=== PATIENT | female | born 1955 ===

== ENCOUNTER → 2018-09-12 11:36 | Outpatient (CLI) | payer OTHER, SELFPAY ==
--- NOTE | 2018-09-12 | DI.MG.S_ITS ---
BILATERAL DIGITAL SCREENING MAMMOGRAM 3D/2D WITH CAD: 09/12/2018 CLINICAL: Routine screening. Family history of breast cancer. Comparison is made to exams dated: 08/17/2017 mammogram, 08/01/2015 mammogram - [facility], and 07/12/2014 mammogram - [facility]. The tissue of both breasts is extremely dense, which lowers the sensitivity of mammography. Current study was also evaluated with a Computer Aided Detection (CAD) system. No significant masses, calcifications, or other findings are seen in either breast. There has been no significant interval change. IMPRESSION: NEGATIVE There is no mammographic evidence of malignancy. A 1 year screening mammogram is recommended. This exam was interpreted at Station ID: [id number]. NOTE: For mammograms, a report in lay terms will be sent to the patient. Approximately 15% of breast malignancies will not be visualized mammographically. In the management of a palpable breast mass, a negative mammogram must not discourage biopsy of a clinically suspicious lesion. Electronically Signed By: Greg levin/beth:09/12/2018 18:27:22 letter sent: Normal Exam ACR BI-RADS Category 1: Negative 3341F
== END ==
PROVIDERS: Visit Provider Registered Nurse
DX: Z12.31 Encounter for screening mammogram for malignant neoplasm of breast (principal); Z80.3 Family history of malignant neoplasm of breast
CPT/HCPCS: 77063; 77067

== ENCOUNTER → 2018-11-10 09:54 | Outpatient (CLI) | payer OTHER, SELFPAY ==
[2018-11-10 10:29] LABS: Add Manual Diff / Slide Review NO; Basophils Absolute Auto 0 /uL (0-100); Basophils Percent Auto 0.5 % (0-2); Eosinophils Absolute Auto 100 /uL (0-450); Eosinophils Percent Auto 2.8 % (2-4); Hemoglobin 13.7 g/dL (12.0-16.0); Lymphocytes Absolute Auto 1600 /uL (1100-4500); Lymphocytes Percent Auto 32.5 % (25-40); Mean Corpuscular HGB Conc 34.3 % (30-36); Mean Corpuscular Hemoglobin 31.3 PG (26-34); Mean Corpuscular Volume 91.2 fL (80-100); Monocytes Absolute Auto 600 /uL (0-900); Monocytes Percent Auto 11.5 % (3-14); Neutrophils Absolute Auto 2500 /uL (1500-7000); Neutrophils Percent Auto 52.7 % (50-75); Platelet Count 253 X10^3/uL (150-400); Red Blood Cell Count 4.38 X10^6/uL (4.0-5.2); Red Cell Distribution Width 12.8 % (11.6-14.8); White Blood Cell Count 4.8 X10^3/uL (4.5-11.0)
[2018-11-10 11:05] LABS: Alanine Aminotransferase 15 IU/L (9-52); Albumin 4.6 g/dL (3.5-5.0); Albumin Globulin Ratio 1.5 (1.0-2.8); Alkaline Phosphatase 73 U/L (38-126); Aspartate Aminotransferase 26 IU/L (14-36); Bilirubin Total 0.7 mg/dL (0.2-1.3); Blood Urea Nitrogen 20 mg/dL (7-17); Calcium 9.7 mg/dL (8.4-10.2); Carbon Dioxide 31 mmol/L (22-32); Chloride 101 mmol/L (98-107); Cholesterol 208 mg/dL (140-199); Estimated Glomerular Filt Rate > 60.0 mL/min (>60); Glucose 92 mg/dL (80-110); HDL Cholesterol 69 mg/dL (40-60); HEMOLYSIS < 15 (0-50); LDL Cholesterol Calculated 124 mg/dL (<100); Potassium 4.5 mmol/L (3.4-5.1); Sodium 139 mmol/L (137-145); Total Protein 7.6 g/dL (6.3-8.2); Triglycerides 75 mg/dL (35-150)
[2018-11-10 11:34] LABS: TSH w/ Reflex to FT4 2.09 uIU/mL (0.47-4.68)
[2018-11-10 11:41] LABS: Creatinine Urine Random 71.9 mg/dL
[2018-11-10 11:44] LABS: Microalbumi Creatinin Ratio Ur 9.7 ug/mg CR (<30); Microalbumin Urine Random 0.7 mg/dL (0-1.6)
== END ==
PROVIDERS: PCP Nurse Practitioner; Visit Provider Nurse Practitioner
DX: I10 Essential (primary) hypertension (principal); Z00.00 Encounter for general adult medical examination without abnormal findings
CPT/HCPCS: 36415; 80053; 80061; 82043; 82570; 84443; 85025

== ENCOUNTER 2018-11-23 15:08 | Emergency (ER) | payer OTHER, SELFPAY ==
[2018-11-23 15:16] VITALS: BP 160/97; PULSE 80; RESP 14; TEMP 36.9; O2SAT 99
[2018-11-23 16:10] VITALS: BP 146/84; PULSE 73; RESP 16; O2SAT 100
--- NOTE | 2018-11-23 17:01 | ED_ITS ---
HPI - Epistaxis <MARTIR Grayson-BC - Last Filed: 11/23/18 17:21> General Chief complaint: Nasal Problem Stated complaint: NOSE BLEED - 2ND IN 2 DAYS Time Seen by Provider: 11/23/18 15:10 Source: patient Mode of arrival: ambulatory Limitations: no limitations History of Present Illness HPI Narrative: The patient is a 63-year-old female nonsmoker with history of hypertension who presents with a chief complaint of a nose bleed. She states this is her 2nd 1 in 2 days. She states she has had a recent URI, with cough and congestion. She states that her nosebleed today started at approximately 12:30 p.m., and has decreased significantly. She has applied pressure to the bridge of her nose. She states that her nosebleed has stopped, but she knows it would reoccur if she were to blow her nose so she came into the emergency department. She denies any lightheadedness or dizziness. Related Data Previous Rx's Medication Instructions Recorded conjugated estrogens 0.625 mg/gram 0.625 mg VAGINAL .COMPLEX #30 gram 10/07/18 vaginal cream hydrochlorothiazide 25 mg tablet 12.5 mg PO DAILY #30 tab 11/10/18 Allergies Allergy/AdvReac Type Severity Reaction Status Date / Time sulfamethoxazole Allergy Intermediate Bad rash, Verified 11/10/18 08:49 [From ] moderate to severe trimethoprim [From ] Allergy Intermediate Bad rash, Verified 11/10/18 08:49 moderate to severe Review of Systems <MARTIR Grayson-BC - Last Filed: 11/23/18 17:21> Review of Systems GENERAL: Denies chills, fatigue, malaise, fever, sweats. HEENT: See HPI RESPIRATORY: Denies dyspnea, cough, wheezing, hemoptysis, sputum. CARDIOVASCULAR: Denies chest pain, palpitations, orthopnea, edema, GASTROINTESTINAL: Denies nausea, vomiting, abdominal pain, diarrhea, constipation, melena. : Denies dysuria, frequency, incontinence, hematuria, urinary retention. MUSCULOSKELETAL: denies weakness, joint pain, or bony pain SKIN: Denies rash, skin lesions, or other NEUROLOGIC: Denies weakness, headache, numbness, change in speech, confusion, seizures, incoordination. PSYCHIATRIC: No concerning psychosocial issues. 12 point review of systems is negative except for those stated above PFSH <SUDHAKAR Grayson - Last Filed: 11/23/18 17:21> Family History (Updated 07/17/15 @ 00:00 by Adelaide Maki PA-C) Father Cancer Heart disease Mother Heart disease Osteoporosis Sister Osteoporosis Social History Smoking Status: Never smoker Family History Father Cancer Heart disease Mother Heart disease Osteoporosis Sister Osteoporosis Social History Smoking Status: Never smoker Exam <SUDHAKAR Grayson - Last Filed: 11/23/18 17:21> Narrative Exam Narrative: GENERAL: This is a well-nourished, well-developed patient, in no acute distress HEAD: Atraumatic. Normocephalic. No temporal or scalp tenderness. EYES: Pupils equal round and reactive. Extraocular motions intact. No scleral icterus. No injection or drainage. ENT: Nose dry blood bilateral nares but no purulent drainage or septal hematoma. No active epistaxis. Throat without erythema, tonsillar hypertrophy or exudate. No blood noted in oropharynx. Uvula midline. Airway patent. NECK: Trachea midline. No JVD or lymphadenopathy. Supple, nontender, no meningeal signs. CARDIOVASCULAR: Regular rate and rhythm without murmurs, gallops, or rubs. RESPIRATORY: Clear to auscultation. Breath sounds equal bilaterally. No wheezes, rales, or rhonchi. Occasional cough noted. GASTROINTESTINAL: Abdomen soft, non-tender, nondistended. No hepato- splenomegaly, or palpable masses. No guarding. EXTREMITIES: No clubbing, cyanosis, or edema. No joint tenderness, effusion, or edema noted. BACK: Nontender without deformity or crepitance. No flank tenderness. NEURO: AOx3. SKIN: No rash or erythema. Initial Vital Signs Initial Vital Signs: Vital Signs Temperature 98.4 F 11/23/18 15:16 Pulse Rate 80 11/23/18 15:16 Respiratory Rate 14 11/23/18 15:16 Blood Pressure 160/97 H 11/23/18 15:16 Pulse Oximetry 99 11/23/18 15:16 <Beto Naranjo DO - Last Filed: 11/23/18 17:23> Initial Vital Signs Initial Vital Signs: Vital Signs Temperature 98.4 F 11/23/18 15:16 Pulse Rate 80 11/23/18 15:16 Respiratory Rate 14 11/23/18 15:16 Blood Pressure 160/97 H 11/23/18 15:16 Pulse Oximetry 99 11/23/18 15:16 Course <SUDHAKAR Grayson - Last Filed: 11/23/18 17:21> Vital Signs - 8 hr 11/23/18 15:16 11/23/18 16:10 11/23/18 17:07 Temperature 98.4 F Pulse Rate 80 73 72 Respiratory Rate 14 16 15 Blood Pressure 160/97 H 141/82 H Blood Pressure [Left Arm] 146/84 H Pulse Oximetry 99 100 100 <Beto Naranjo DO - Last Filed: 11/23/18 17:23> Vital Signs - 8 hr 11/23/18 15:16 11/23/18 16:10 11/23/18 17:07 Temperature 98.4 F Pulse Rate 80 73 72 Respiratory Rate 14 16 15 Blood Pressure 160/97 H 141/82 H Blood Pressure [Left Arm] 146/84 H Pulse Oximetry 99 100 100 MDM - Epistaxis <SUDHAKAR Grayson - Last Filed: 11/23/18 17:21> MDM Narrative Medical decision making narrative: The patient is a 63-year-old female who presents with a chief complaint of nose bleeds. She has no active bleeding on exam. We did apply a nasal clamp pain into re-evaluation, there is no repeat bleeding. I did offer a chest x-ray given her cough and congestion, but she declined stating she is feeling better than a few days ago. I discussed at length coming back to the emergency department for concerns such as uncontrollable nasal bleeding. Discussed not blowing her nose and trying to not pick at her nose, not dislodging clots in order to help prevent future nose bleeds. Discussed using a humidifier. Patient has no questions or concerns upon discharge. She is hemodynamically stable throughout her stay in the ER. Encourage follow-up with PCP. Discharge Plan Departure Patient Disposition: Home Clinical Impression: Epistaxis Discharge Date/Time: 11/23/18 17:09 Interventions: ED Discharge Assessment Last Done: 11/23/18 17:07 Instructions: DI for Cough -- Adult, DI for Nosebleed Activity Restrictions/Additional Instructions: Please continue [id number] measures for cough, such as lemon and honey, Robitussin, Coicidin HBP for congestion. I suggest a humidifier at night. Especially. Please do not blow your nose replace anything inside your nose for now. Please come back to the emergency department for any acute concerns. Please follow up with your primary care provider. Prescriptions: No Action Premarin 0.625 mg/gram cream 0.625 mg Vaginal .COMPLEX Qty: 30 RF: 6 hydrochlorothiazide 25 mg tablet 12.5 mg PO DAILY Qty: 30 RF: 1 Referrals: Lois Gaytan ARNP [Primary Care Provider] - Stand Alone Forms: Work Release Note <Beto Naranjo DO - Last Filed: 11/23/18 17:23> Cosign ED Attending Khurram Attestation: I was available for consultation during this patient's emergency department encounter
[2018-11-23 17:07] VITALS: BP 141/82; PULSE 72; RESP 15; O2SAT 100
== END 2018-11-23 17:09 | disposition home or self-care (01) ==
PROVIDERS: Emergency Provider Nurse Practitioner Family; PCP Nurse Practitioner
DX: R04.0 Epistaxis (principal)
CPT/HCPCS: 99282

== ENCOUNTER → 2018-12-05 08:48 | Outpatient (CLI) | payer OTHER, SELFPAY ==
--- NOTE | 2018-12-05 08:49 | DI.ECHO.S_ITS ---
[place] +---------+ [facility] +---------+ : : [address] : : : : [id number] : : : : Phone: [phone] Echocardiogram Report + + :Name: GABRIEL PINA Study Date: 12/05/2018 Height: 65 in : :[facility] Weight: 140 lb : : Gender: Female BSA: 1.7 m2 : :: 1955 Age: 63 yrs BP: 130/70 mmHg: :Reason For Study: Hypertension : : Performed By: Gina Cowart : :Referring: URI CHICAS : + + Interpretation Summary The ejection fraction is estimated to be 60-65%. The right ventricular systolic pressure is estimated to be at least 29 mmHg based on an estimated right atrial pressure of 8 mm Hg. Procedure: A two-dimensional transthoracic echocardiogram with color flow and Doppler was performed. The study quality was technically adequate. There is no prior echocardiogram noted for this patient. The patient was in normal sinus rhythm during the exam. Left Ventricle: The left ventricle is normal in size, wall thickness, and systolic function without any focal wall motion abnormalities. The ejection fraction is estimated to be 60-65%. Left ventricular wall motion is normal. Diastolic parameters suggest probable normal left ventricular diastolic function and normal filling pressures. Right Ventricle: The right ventricle grossly appears normal in size with probable normal systolic function. Atria: The left atrial size is normal. Right atrial size is normal. The interatrial septum is intact with no evidence for an atrial septal defect. Mitral Valve: The mitral valve is normal in structure and function. There is no mitral regurgitation noted. Aortic Valve: The aortic valve is trileaflet. The aortic valve opens well. No aortic regurgitation is present. Tricuspid Valve: The tricuspid valve is normal in structure and function. There is a trace or physiologic amount of tricuspid regurgitation. The right ventricular systolic pressure is estimated to be at least 29 mmHg based on an estimated right atrial pressure of 8 mm Hg. Pulmonic Valve: The pulmonic valve is normal in structure and function. There is no pulmonic valvular regurgitation. Great Vessels: The aortic root is normal size. The dimensions of the ascending aorta are normal. The aortic arch is normal in size. The IVC is dilated (diameter is greater than 2.1 cm) yet it collapses greater than 50% with a sniff. This suggests a right atrial pressure of 8 mm Hg. Pericardium/ Pleura There is no pericardial effusion. There is no pleural effusion. MMode/2D Measurements & Calculations LVIDd: 4.4 cm Ao root diam: 3.1 cm LVIDs: 2.5 cm Aortic Jxn: 2.6 cm FS: 42.8 % asc Aorta Diam: 2.9 cm EPSS: 0.59 cm Ao Arch Diam (Prox Trans): 2.7 cm IVSd: 0.81 cm LVPWd: 0.93 cm LV park. diameter/BSA (cm/m^2): 2.6 LV sys. diameter/BSA (cm/m^2): 1.5 LA dimension: 3.2 cm RA long axis: 4.4 cm LA A2 area: 18.5 cm2 RA area: 12.0 cm2 LA A4 area: 17.8 cm2 RA vol: 28.0 ml LA length (vol): 4.8 cm RA : 16.5 ml/m2 LA vol: 58.2 ml IVC diam: 2.2 cm LA vol index: 34.2 ml/m2 RVDd major: 5.9 cm RVD1 (basal): 3.2 cm RVD2 (mid): 2.7 cm Doppler Measurements & Calculations Ao V2 max: 130.9 cm/sec MV E max geovany: 112.9 cm/sec Ao V2 mean: 90.0 cm/sec MV A max geovany: 98.8 cm/sec Ao max P.8 mmHg MV E/A: 1.1 Ao mean P.7 mmHg Med Peak E' Geovany: 7.1 cm/sec Ao V2 VTI: 30.5 cm E/E' med: 16.0 Lat Peak E' Geovany: 8.1 cm/sec E/E' lat: 13.9 E/e' average: 15.0 MV dec time: 0.19 sec MV P1/2t: 54.7 msec TR max geovany: 231.1 cm/sec MV P1/2t max geovany: 113.1 cm/sec TR max P.4 mmHg MVA(P1/2t): 4.0 cm2 PA V2 max: 81.2 cm/sec PA V2 mean: 53.7 cm/sec PA mean P.4 mmHg PA Accel Time: 0.17 sec Reading Physician:02:49 PM
== END ==
PROVIDERS: PCP Nurse Practitioner; Visit Provider Nurse Practitioner
DX: I10 Essential (primary) hypertension (principal)
CPT/HCPCS: 93306

== ENCOUNTER → 2020-01-05 10:29 | Outpatient (CLI) | payer OTHER, SELFPAY ==
--- NOTE | 2020-01-05 10:30 | DI.MG.S_ITS ---
BILATERAL DIGITAL SCREENING MAMMOGRAM 3D/2D WITH CAD: 01/05/2020 CLINICAL: Routine screening. Family history of breast cancer. Comparison is made to exams dated: 01/05/2020 mammogram, 09/12/2018 mammogram, and 08/17/2017 mammogram - [facility]. The tissue of both breasts is extremely dense, which lowers the sensitivity of mammography. Current study was also evaluated with a Computer Aided Detection (CAD) system. No significant masses, calcifications, or other findings are seen in either breast. There has been no significant interval change. IMPRESSION: NEGATIVE There is no mammographic evidence of malignancy. A 1 year screening mammogram is recommended. This exam was interpreted at Station ID: [id number]. NOTE: For mammograms, a report in lay terms will be sent to the patient. Approximately 15% of breast malignancies will not be visualized mammographically. In the management of a palpable breast mass, a negative mammogram must not discourage biopsy of a clinically suspicious lesion. Electronically Signed By: Jo-Ann jackson/beth:01/05/2020 11:07:02 letter sent: Normal Exam ACR BI-RADS Category 1: Negative 3341F
== END ==
PROVIDERS: PCP Nurse Practitioner; Referring Provider Nurse Practitioner; Visit Provider Nurse Practitioner
DX: Z12.31 Encounter for screening mammogram for malignant neoplasm of breast (principal); Z80.3 Family history of malignant neoplasm of breast
CPT/HCPCS: 77063; 77067

== ENCOUNTER → 2020-01-16 08:24 | Outpatient (CLI) | payer OTHER, SELFPAY ==
--- NOTE | 2020-01-16 08:26 | DI.RAD.S_ITS ---
PROCEDURE: XR CHEST 2V INDICATIONS: Chest pain TECHNIQUE: 2 views of the chest were acquired. COMPARISON: None. FINDINGS: Surgical changes and devices: None. Lungs and pleura: Lungs are clear. No pleural effusions or pneumothorax. Mediastinum: Mediastinal contours are normal. Heart size is normal. Right shoulder calcific tendinitis. IMPRESSION: No acute disease Dictated by: Tip Rogers M.D. on 01/16/2020 at 9:14 Approved by: Tip Rogers M.D. on 01/16/2020 at 9:21
[2020-01-16 08:47] LABS: Add Manual Diff / Slide Review NO; Basophils Absolute Auto 0 /uL (0-100); Basophils Percent Auto 0.5 % (0-2); Eosinophils Absolute Auto 200 /uL (0-450); Eosinophils Percent Auto 3.2 % (2-4); Hematocrit 36.9 % (36-46); Hemoglobin 12.5 g/dL (12.0-16.0); Lymphocytes Absolute Auto 2200 /uL (1100-4500); Lymphocytes Percent Auto 39.5 % (25-40); Mean Corpuscular HGB Conc 33.7 % (30-36); Mean Corpuscular Hemoglobin 30.6 PG (26-34); Mean Corpuscular Volume 90.7 fL (80-100); Monocytes Absolute Auto 600 /uL (0-900); Monocytes Percent Auto 11.1 % (3-14); Neutrophils Absolute Auto 2500 /uL (1500-7000); Neutrophils Percent Auto 45.7 % (50-75); Platelet Count 238 X10^3/uL (150-400); Red Blood Cell Count 4.07 X10^6/uL (4.0-5.2); Red Cell Distribution Width 12.8 % (11.6-14.8); White Blood Cell Count 5.6 X10^3/uL (4.5-11.0)
[2020-01-16 09:15] LABS: Alanine Aminotransferase 22 IU/L (<35); Albumin 4.3 g/dL (3.5-5.0); Albumin Globulin Ratio 1.4 (1.0-2.8); Alkaline Phosphatase 57 U/L (38-126); Aspartate Aminotransferase 35 IU/L (14-36); BUN Creatinine Ratio 31.3 (6-22); Bilirubin Total 0.7 mg/dL (0.2-1.3); Blood Urea Nitrogen 25 mg/dL (7-17); Calcium 9.4 mg/dL (8.4-10.2); Carbon Dioxide 32 mmol/L (22-32); Chloride 100 mmol/L (98-107); Cholesterol 220 mg/dL (140-199); Estimated Glomerular Filt Rate > 60.0 mL/min (>60); Glucose 95 mg/dL (80-110); HDL Cholesterol 67 mg/dL (40-60); HEMOLYSIS < 15 (0-50); LDL Cholesterol Calculated 134 mg/dL (<100); Potassium 3.7 mmol/L (3.4-5.1); Sodium 137 mmol/L (137-145); Total Protein 7.3 g/dL (6.3-8.2); Triglycerides 97 mg/dL (35-150)
[2020-01-16 09:44] LABS: Thyroid Stimulating Hormone 3.95 uIU/mL (0.47-4.68)
== END ==
PROVIDERS: PCP Nurse Practitioner; Referring Provider Family Medicine; Visit Provider Family Medicine
DX: R07.9 Chest pain, unspecified (principal)
CPT/HCPCS: 36415; 71046; 80053; 80061; 84443; 85025

== ENCOUNTER → 2020-02-05 10:47 | Outpatient (CLI) | payer OTHER, SELFPAY ==
[2020-02-06 20:08] LABS: COVID19 Sendout Not Detected (Not Detect)
== END ==
PROVIDERS: PCP Nurse Practitioner; Visit Provider Physician Assistant
DX: Z11.59 Encounter for screening for other viral diseases (principal)
CPT/HCPCS: 87635

== ENCOUNTER → 2020-02-08 09:01 | Outpatient (CLI) | payer OTHER, SELFPAY ==
--- NOTE | 2020-02-08 09:27 | DI.ECHO.S_ITS ---
Echocardiogram Report + + :Name: GABRIEL PINA Study Date: 02/08/2020 Height: 65 in : :[facility] Weight: 143 lb : : Gender: Female BSA: 1.7 m2 : :: 1955 Age: 64 yrs BP: 159/78 mmHg: :Reason For Study: CHEST PAIN : :Ordering Physician: Dr. Vance : :Jam Performed By: Corinne Poole : :Referring: ISAÍAS PATHAK : + + Interpretation Summary The left ventricle is normal in size and wall thickness. The left ventricular ejection fraction is normal. There are no focal wall motion abnormalities. Diastolic parameters suggest probable normal left ventricular diastolic function and normal filling pressures. The right ventricle is normal in size and function. The right ventricular systolic pressure is estimated to be at least 27 mmHg based on an estimated right atrial pressure of 3 mm Hg. Both atria are normal in size. -No structural abnormality by echocardiogram. -No change compared to the prior echocardiogram. Procedure: A two-dimensional transthoracic echocardiogram with color flow and Doppler was performed. The study quality was technically adequate. Comparison is made with the echocardiogram of 12/05/2018. The patient was in normal sinus rhythm during the exam. Left Ventricle: The left ventricle is normal in size and wall thickness. The ejection fraction is estimated to be 60-65%. The left ventricular ejection fraction is normal. There are no focal wall motion abnormalities. Diastolic parameters suggest probable normal left ventricular diastolic function and normal filling pressures. Right Ventricle: The right ventricle is normal in size and function. Atria: Both atria are normal in size. There is no Doppler evidence for an interatrial shunt. Mitral Valve: The mitral valve is normal in structure and function. There is no mitral regurgitation noted. Aortic Valve: The aortic valve is trileaflet. The aortic valve opens well. There is no aortic valve stenosis. No aortic regurgitation is present. Tricuspid Valve: The tricuspid valve is normal in structure and function. There is mild tricuspid regurgitation. The right ventricular systolic pressure is estimated to be at least 27 mmHg based on an estimated right atrial pressure of 3 mm Hg. Pulmonic Valve: The pulmonic valve leaflets are thin and pliable; valve motion is normal. There is no pulmonic valvular regurgitation. Great Vessels: The aortic root is normal size. The ascending aorta is normal in size. The IVC is of normal diameter and collapses greater than 50% with a sniff. This suggests a low right atrial pressure of 3 mm Hg. Pericardium/ Pleura There is no pericardial effusion. There is no pleural effusion. MMode/2D Measurements & Calculations LVIDd: 4.4 cm LVOT diam: 2.2 cm LVIDs: 2.8 cm Ao root diam: 2.9 cm FS: 35.2 % asc Aorta Diam: 2.9 cm EPSS: 0.70 cm Ao Arch Diam (Prox Trans): 2.5 cm IVSd: 0.68 cm LVPWd: 0.57 cm LV park. diameter/BSA (cm/m^2): 2.6 LV sys. diameter/BSA (cm/m^2): 1.7 LA A2 area: 15.1 cm2 RA long axis: 4.7 cm LA A4 area: 11.0 cm2 RA area: 11.9 cm2 LA length (vol): 3.8 cm RA vol: 26.0 ml LA vol: 36.6 ml RA : 15.2 ml/m2 LA vol index: 21.4 ml/m2 IVC diam: 1.9 cm RVD1 (basal): 2.8 cm TAPSE: 2.0 cm Doppler Measurements & Calculations Ao V2 max: 114.4 cm/sec LVOT Max Geovany: 86.1 cm/sec Ao V2 mean: 85.7 cm/sec LV V1 max P.0 mmHg Ao max P.2 mmHg LV V1 VTI: 19.8 cm Ao mean P.1 mmHg DANGELO(I,D): 2.7 cm2 Ao V2 VTI: 27.2 cm DANGELO(V,D): 2.8 cm2 sev ratio: 0.73 DANGELO indexed to BSA (cm^2/m^2): 1.6 MV E max geovany: 91.1 cm/sec TR max geovany: 243.8 cm/sec MV A max geovany: 94.7 cm/sec TR max P.8 mmHg MV E/A: 0.96 PA V2 max: 77.5 cm/sec Med Peak E' Geovany: 9.8 cm/sec PA V2 mean: 57.0 cm/sec E/E' med: 9.3 PA mean P.4 mmHg Lat Peak E' Geovany: 9.8 cm/sec PA pr(Accel): 7.1 mmHg E/E' lat: 9.3 E/e' average: 9.3 MV dec time: 0.23 sec SV(LVOT): 74.6 ml Electronically signed by: Bill Santiago M.D. on Reading Physician:02/08/2020 08:30 PM
--- NOTE | 2020-02-08 14:20 | P.PCN_ITS ---
Cardiac Stress Test Report Referral & Results Date Patient Seen: 02/08/20 Time Patient Seen: 14:00 Requesting provider: Rajiv Polk Indication: Atypical chest pain Rest ECG: Normal sinus rhythm Procedure Note: Today following both written and verbal informed consent the patient was exercised according to a standard Gerardo protocol patient went for a total of 9 minutes 20 seconds achieving a maximum heart rate of 165 maximum systolic blood pressure of 220. This is approximately 10.1 METs. Exercise was terminated at this point because of fatigue. Patient was also given Cardiolite through a previously started Hep-Lock IV by the nuclear logging engineer approximately 1 minute prior to the cessation of exercise. Exaggerated hemodynamic response to exercise. No signs or symptoms of angina. Presenting symptom was not reproduced on exercise. [address] depression in inferior leads that resolved rapidly with rest. No change in rhythm. Impression: High probability for ischemia. Will await perfusion imaging, but cardiology consultation is likely appropriate. Please note: Actual ECG tracings can be found in the PACS system.
--- NOTE | 2020-02-08 20:43 | DI.NM.S_ITS ---
DATE OF SERVICE: 02/08/2020 PROCEDURE PERFORMED: Exercise treadmill stress and rest myocardial perfusion imaging with gating to assess ejection fraction and regional wall motion. Performed as a one day study. ORDERING PROVIDER: Dr. Rajiv Polk. INDICATIONS: The patient is a 64-year-old female with recurrent atypical chest discomfort. EXERCISE TREADMILL TESTING: The patient was able to exercise for a total of 9 minutes 21 seconds on a standard Gerardo protocol, suggesting excellent exercise capacity with an BARBARA of -35%. She had a normal heart rate response to exercise, achieving a maximum heart rate of 165 bpm (104% of her predicted maximum). She had a hypertensive blood pressure response with a resting blood pressure of 140/72 that increased to a peak of 220/80. She had no chest discomfort or other anginal symptoms. Her resting ECG is normal. With exercise, she develops subtle upsloping ST depression that resolves promptly in recovery and thus is nonspecific. There were no arrhythmias. At 8 minutes 20 seconds of exercise, at a heart rate of 162 bpm, 25.5 mCi of technetium-99m Myoview was injected. The patient was imaged 15 minutes later using a gated SPECT acquisition protocol. Earlier in the day, she had been injected with 11.2 mCi of technetium-99m Myoview at rest and was imaged 30 minutes later, again using a gated SPECT acquisition protocol. FINDINGS: 1. Raw data: There is good myocardial tracer uptake. Lung/heart ratio was normal at 0.29 with a normal TID ratio of 0.81. 2. Quantitated gated SPECT: Post-stress ejection fraction is estimated at 99% without any focal wall motion abnormality. Resting ejection fraction is estimated at 92% with a normal resting end-diastolic volume of 71 mL. 3. Post stress supine images show a normal myocardial perfusion pattern without any perfusion defects, supported by normal perfusion imaging in the prone position. The resting images show an identical perfusion pattern without any areas of improvement. IMPRESSION: 1. Normal myocardial perfusion study. 2. No evidence for myocardial ischemia or previous myocardial infarction. 3. Normal left ventricular systolic function without focal wall motion abnormality. 4. Excellent exercise capacity without angina. She had a significant hypertensive blood pressure response with mild, nonspecific ST-segment changes, likely due to the hypertensive response. Matry Zafar - KARLA/tomas/derek doc#: [id number]/job#: [id number] dd: 02/08/2020 16:49:00 dt: 02/08/2020 20:14:00 DICTATING MD/COPIES TO: Pratik Marlow MD; Rajiv Polk MD; Pratik Marlow MD COPIES MNE: ASHLEY; ;
== END ==
PROVIDERS: PCP Nurse Practitioner; Referring Provider Family Medicine; Visit Provider Family Medicine
DX: R07.89 Other chest pain (principal)
CPT/HCPCS: 78452; 93016; 93017; 93018; 93306; A9502

== ENCOUNTER → 2020-05-15 08:38 | Outpatient (CLI) | payer OTHER, SELFPAY ==
[2020-05-15 10:15] LABS: Alanine Aminotransferase 13 IU/L (<35); Albumin 4.3 g/dL (3.5-5.0); Albumin Globulin Ratio 1.4 (1.0-2.8); Alkaline Phosphatase 57 U/L (38-126); Aspartate Aminotransferase 28 IU/L (14-36); BUN Creatinine Ratio 20.4 (6-22); Bilirubin Total 0.7 mg/dL (0.2-1.3); Blood Urea Nitrogen 19 mg/dL (7-17); Calcium 9.6 mg/dL (8.4-10.2); Carbon Dioxide 36 mmol/L (22-32); Chloride 100 mmol/L (98-107); Cholesterol 183 mg/dL (140-199); Estimated Glomerular Filt Rate > 60.0 mL/min (>60); Glucose 88 mg/dL (80-110); HDL Cholesterol 61 mg/dL (40-60); HEMOLYSIS < 15 (0-50); LDL Cholesterol Calculated 108 mg/dL (<100); Sodium 139 mmol/L (137-145); Total Protein 7.3 g/dL (6.3-8.2); Triglycerides 68 mg/dL (35-150)
[2020-05-15 11:33] LABS: Creatinine Urine Random 146.5 mg/dL
[2020-05-15 11:36] LABS: Microalbumin Urine Random 0.6 mg/dL (0-1.6)
== END ==
PROVIDERS: PCP Nurse Practitioner; Referring Provider Nurse Practitioner; Visit Provider Nurse Practitioner
DX: E78.5 Hyperlipidemia, unspecified (principal); I10 Essential (primary) hypertension; Z79.899 Other long term (current) drug therapy
CPT/HCPCS: 36415; 80053; 80061; 82043; 82570

== ENCOUNTER → 2021-02-26 17:04 | Outpatient (CLI) | payer OTHER, SELFPAY ==
--- NOTE | 2021-02-26 17:04 | DI.MG.S_ITS ---
BILATERAL DIGITAL SCREENING MAMMOGRAM 3D/2D WITH CAD: 02/26/2021 CLINICAL: Routine screening. Family history of breast cancer. Comparison is made to exams dated: 01/05/2020 mammogram, 01/05/2020 mammogram, and 09/12/2018 mammogram - [facility]. The tissue of both breasts is extremely dense, which lowers the sensitivity of mammography. Current study was also evaluated with a Computer Aided Detection (CAD) system. No significant masses, calcifications, or other findings are seen in either breast. There has been no significant interval change. IMPRESSION: NEGATIVE There is no mammographic evidence of malignancy. A 1 year screening mammogram is recommended. This exam was interpreted at Station ID: [id number]. NOTE: For mammograms, a report in lay terms will be sent to the patient. Approximately 15% of breast malignancies will not be visualized mammographically. In the management of a palpable breast mass, a negative mammogram must not discourage biopsy of a clinically suspicious lesion. Electronically Signed By: Escobar Casarez acr/penrad:02/26/2021 19:09:34 letter sent: Normal Exam ACR BI-RADS Category 1: Negative 3341F
== END ==
PROVIDERS: PCP Nurse Practitioner; Referring Provider Nurse Practitioner; Visit Provider Nurse Practitioner
DX: Z12.31 Encounter for screening mammogram for malignant neoplasm of breast (principal); Z80.3 Family history of malignant neoplasm of breast
CPT/HCPCS: 77063; 77067

== ENCOUNTER → 2021-06-21 08:38 | Outpatient (CLI) | payer OTHER, SELFPAY ==
[2021-06-21 08:59] LABS: Add Manual Diff / Slide Review NO; Basophils Absolute Auto 0 /uL (0-100); Basophils Percent Auto 0.6 % (0-2); Eosinophils Absolute Auto 200 /uL (0-450); Eosinophils Percent Auto 3.5 % (2-4); Hematocrit 35.4 % (36-46); Hemoglobin 12.4 g/dL (12.0-16.0); Lymphocytes Absolute Auto 1900 /uL (1100-4500); Lymphocytes Percent Auto 34.7 % (25-40); Mean Corpuscular HGB Conc 34.9 % (30-36); Mean Corpuscular Hemoglobin 31.3 PG (26-34); Mean Corpuscular Volume 89.8 fL (80-100); Monocytes Absolute Auto 700 /uL (0-900); Monocytes Percent Auto 12.3 % (3-14); Neutrophils Absolute Auto 2700 /uL (1500-7000); Neutrophils Percent Auto 48.9 % (50-75); Platelet Count 254 X10^3/uL (150-400); Red Blood Cell Count 3.95 X10^6/uL (4.0-5.2); Red Cell Distribution Width 12.9 % (11.6-14.8); White Blood Cell Count 5.5 X10^3/uL (4.5-11.0)
[2021-06-21 09:16] LABS: Alanine Aminotransferase 12 IU/L (<35); Albumin 4.3 g/dL (3.5-5.0); Albumin Globulin Ratio 1.4 (1.0-2.8); Alkaline Phosphatase 48 U/L (38-126); Aspartate Aminotransferase 25 IU/L (14-36); BUN Creatinine Ratio 20.6 (6-22); Bilirubin Total 0.7 mg/dL (0.2-1.3); Blood Urea Nitrogen 20 mg/dL (7-17); Calcium 9.7 mg/dL (8.4-10.2); Carbon Dioxide 36 mmol/L (22-32); Chloride 102 mmol/L (98-107); Cholesterol 190 mg/dL (140-199); Estimated Glomerular Filt Rate 57.8 mL/min (>60); Glucose 89 mg/dL (80-110); HDL Cholesterol 76 mg/dL (40-60); HEMOLYSIS < 15 (0-50); LDL Cholesterol Calculated 100 mg/dL (<100); Sodium 140 mmol/L (137-145); Total Protein 7.3 g/dL (6.3-8.2); Triglycerides 69 mg/dL (35-150)
[2021-06-21 09:31] LABS: Free T3, Triiodothyronine Free 3.63 pg/mL (2.77-5.27); Free T4, Direct Thyroxine 1.02 ng/dL (0.78-2.19)
[2021-06-21 09:44] LABS: Thyroid Stimulating Hormone 1.88 uIU/mL (0.47-4.68)
[2021-06-21 13:07] LABS: Creatinine Urine Random 64.4 mg/dL
[2021-06-21 13:12] LABS: Microalbumin Urine Random < 0.6 mg/dL (0-1.6)
== END ==
PROVIDERS: PCP Nurse Practitioner; Referring Provider Nurse Practitioner; Visit Provider Nurse Practitioner
DX: Z00.00 Encounter for general adult medical examination without abnormal findings (principal); I10 Essential (primary) hypertension; E78.5 Hyperlipidemia, unspecified; Z79.899 Other long term (current) drug therapy
CPT/HCPCS: 36415; 80053; 80061; 82043; 82570; 84439; 84443; 84481; 85025

== ENCOUNTER → 2022-06-01 08:03 | Outpatient (CLI) | payer MEDICARE, OTHER, SELFPAY ==
--- NOTE | 2022-06-01 08:06 | DI.ECHO.S_ITS ---
[place] +---------+ [facility] +---------+ : : [address] : : : : [id number] : : : : Phone: [phone]---------+ Echocardiogram Report + + :Name: GABRIEL PINA Study Date: 06/01/2022 Height: 65 in : :[facility] ReadingLocation: Weight: 135 lb : : Gender: Female BSA: 1.7 m2 : :: 1955 Age: 67 yrs BP: 135/72 mmHg: :Reason For Study: IPPE, HTN : : Performed By: Alejandro Holm : :Referring: URI CHICAS : + + Interpretation Summary The left ventricle is normal in size. Left ventricular systolic function appears normal without focal wall motion abnormalities. The ejection fraction is estimated to be 60-65%. LVEF has not changed since prior study. Diastolic parameters suggest probable normal left ventricular diastolic function and normal filling pressures. The right ventricle is normal in size and function. The right ventricular systolic pressure is estimated to be at least 31 mmHg based on an estimated right atrial pressure of 3 mm Hg. Minor increase of pulmonary HTN since prior study. Both atria are normal in size. There is no significant valvular heart disease. The aortic root is normal size. Procedure: A two-dimensional transthoracic echocardiogram with color flow and Doppler was performed. The study quality was technically good. Comparison is made with the echocardiogram of 02/08/20. The patient was in normal sinus rhythm during the exam. Left Ventricle: The left ventricle is normal in size. There is normal left ventricular wall thickness. Left ventricular systolic function appears normal without focal wall motion abnormalities. The ejection fraction is estimated to be 60-65%. Diastolic parameters suggest probable normal left ventricular diastolic function and normal filling pressures. Right Ventricle: The right ventricle is normal in size and function. Atria: Both atria are normal in size. There is no Doppler evidence for an atrial septal defect. Mitral Valve: The mitral valve is normal in structure and function. There is trace mitral regurgitation. Aortic Valve: The aortic valve is trileaflet. The aortic valve opens well. No aortic regurgitation is present. Tricuspid Valve: The tricuspid valve is normal in structure and function. There is trace tricuspid regurgitation. The right ventricular systolic pressure is estimated to be at least 31 mmHg based on an estimated right atrial pressure of 3 mm Hg. Pulmonic Valve: The pulmonic valve leaflets are thin and pliable; valve motion is normal. There is trace pulmonic regurgitation. There is no significant valvular heart disease. Great Vessels: The aortic root is normal size. The dimensions of the ascending aorta are normal. The pulmonary artery is normal size. The IVC is of normal diameter and collapses greater than 50% with a sniff. This suggests a low right atrial pressure of 3 mm Hg. Pericardium/ Pleura There is a trivial pericardial effusion noted. There are no echocardiographic indications of cardiac tamponade. There is no pleural effusion. MMode/2D Measurements & Calculations LVIDd: 3.9 cm LVOT diam: 2.1 cm LVIDs: 2.4 cm Ao root diam: 2.7 cm FS: 37.4 % asc Aorta Diam: 3.1 cm EPSS: 0.35 cm Ao Arch Diam (Prox Trans): 2.5 cm IVSd: 0.79 cm LVPWd: 1.00 cm LV park. diameter/BSA (cm/m^2): 2.3 LV sys. diameter/BSA (cm/m^2): 1.5 LA A2 area: 17.7 cm2 RA long axis: 4.7 cm LA A4 area: 15.8 cm2 RA area: 15.3 cm2 LA length (vol): 4.6 cm RA vol: 42.2 ml LA vol: 52.0 ml RA : 25.2 ml/m2 LA vol index: 31.1 ml/m2 IVC diam: 1.9 cm TAPSE: 2.1 cm Doppler Measurements & Calculations Ao V2 max: 141.0 cm/sec LVOT Max Geovany: 97.1 cm/sec Ao V2 mean: 107.6 cm/sec LV V1 max P.8 mmHg Ao max P.0 mmHg LV V1 VTI: 23.8 cm Ao mean P.9 mmHg DANGELO(I,D): 2.4 cm2 Ao V2 VTI: 33.6 cm DANGELO(V,D): 2.3 cm2 sev ratio: 0.71 DANGELO indexed to BSA (cm^2/m^2): 1.4 MV E max geovany: 95.3 cm/sec TR max geovany: 266.6 cm/sec MV A max geovany: 82.8 cm/sec TR max P.4 mmHg MV E/A: 1.2 PA V2 max: 81.2 cm/sec Med Peak E' Geovany: 7.3 cm/sec PA V2 mean: 69.2 cm/sec E/E' med: 13.0 PA mean P.0 mmHg Lat Peak E' Geovany: 7.2 cm/sec PA pr(Accel): 19.1 mmHg E/E' lat: 13.3 E/e' average: 13.2 MV dec time: 0.22 sec SV(LVOT): 79.9 ml Reading Physician:05:35 PM
--- NOTE | 2022-06-01 08:06 | DI.MG.S_ITS ---
BILATERAL DIGITAL SCREENING MAMMOGRAM 3D/2D WITH CAD: 06/01/2022 CLINICAL: Routine screening. Comparison is made to exams dated: 02/26/2021 mammogram, 01/05/2020 mammogram, 09/12/2018 mammogram, and 08/17/2017 mammogram - [facility]. Both breasts are extremely dense, which lowers the sensitivity of mammography (category d />75% glandular tissue). Current study was also evaluated with a Computer Aided Detection (CAD) system. No significant masses, calcifications, or other findings are seen in either breast. There has been no significant interval change. IMPRESSION: NEGATIVE There is no mammographic evidence of malignancy. A 1 year screening mammogram is recommended. Based on the Tyrer Cuzick model (a risk assessment model) the patient's lifetime risk is 14.1% and her 10 year risk is 6.9%. According to the ACR, ACS, and NCCN guidelines, an annual breast MRI exam along with mammogram is recommended if the patient's lifetime risk is 20% or greater. This exam was interpreted at Station ID: [id number]. NOTE: For mammograms, a report in lay terms will be sent to the patient. Approximately 15% of breast malignancies will not be visualized mammographically. In the management of a palpable breast mass, a negative mammogram must not discourage biopsy of a clinically suspicious lesion. Electronically Signed By: Alban peralta/beth:06/01/2022 10:46:53 letter sent: Normal Exam ACR BI-RADS Category 1: Negative 3341F
== END ==
PROVIDERS: PCP Nurse Practitioner; Referring Provider Nurse Practitioner; Visit Provider Nurse Practitioner
DX: Z12.31 Encounter for screening mammogram for malignant neoplasm of breast; Z00.00 Encounter for general adult medical examination without abnormal findings; I10 Essential (primary) hypertension; Z13.820 Encounter for screening for osteoporosis; M85.852 Other specified disorders of bone density and structure, left thigh; Z78.0 Asymptomatic menopausal state
CPT/HCPCS: 77063; 77067; 77080; 93306

== ENCOUNTER 2022-06-09 07:04 | Day surgery (SDC) | payer MEDICARE, OTHER, SELFPAY ==
[2022-06-09] MEDS: LACTATED RINGERS 1,000 ML 42 ML IV (08:12)
[2022-06-09 08:27] VITALS: BP 159/74; PULSE 76; RESP 16; TEMP 36.3; O2SAT 97; BMI 22.6
[2022-06-09 08:31] LABS: COVID19 -Nasal RAPID Negative (Negative)
--- NOTE | 2022-06-09 08:58 | PM.HP.1 ---
History of Present Illness History of Present Illness Date Patient Seen: 06/09/22 Time Patient Seen: 08:59 Chief complaint: Colonoscopy Narrative: Colon cancer screening, last scope was 12 years ago. no family history or symptoms of concern. Patient History Medical History Arthralgia of hip (02/04/15) Exercise-induced angina Hyperlipidemia Vaginal atrophy (02/04/15) Family & Social History Family History Father Cancer Heart disease Mother Heart disease Osteoporosis Sister Osteoporosis Social History: household members spouse Tobacco & Substance use: Smoking Status Never smoker alcohol intake former alcohol intake frequency 0-2 drinks per day Substance Use Type does not use Meds Home Medications and Allergies Home Medications Medication Instructions Recorded Confirmed Type artichoke extract 1 cap PO BID #60 caplets 05/22/20 06/09/22 Rx coenzyme Q10-red yeast rice 25 1 cap PO DAILY 05/22/20 06/09/22 History mg-600 mg capsule conjugated estrogens 0.625 mg/gram See Rx Instructions .Route 02/18/22 06/09/22 Rx vaginal cream (Premarin) .COMPLEX #30 grams hydrochlorothiazide 12.5 mg tablet 12.5 mg PO DAILY #90 tabs 02/18/22 06/09/22 Rx Allergies Allergy/AdvReac Type Severity Reaction Status Date / Time sulfamethoxazole Allergy Intermediate Bad rash, Verified 06/09/22 08:23 [From SEPTRA] moderate to severe trimethoprim [From SEPTRA] Allergy Intermediate Bad rash, Verified 06/09/22 08:23 moderate to severe adhesive tape Allergy Itching, Verified 06/09/22 08:23 redness. Review of Systems Review of Systems ROS: Yes All systems reviewed with the patient and are negative except as otherwise documented Exam Vital Signs (past 8 hours): - 06/09/22 08:27 Temperature 97.3 F L Pulse Rate 76 Respiratory Rate 16 Blood Pressure 159/74 H Pulse Oximetry 97 Oxygen Delivery Method Room Air Oxygen Delivery Method Room Air Const General: cooperative and healthy appearing [facility] Head: normocephalic and atraumatic Face and sinus: normal facial exam Eyes General: appearance normal, both eyes and all related structures Neck Neck: trachea midline Chest Chest: normal inspection of the chest Resp Effort & Inspection: normal respiratory effort Cardio Rate: regular rate Rhythm: regular rhythm GI Palpation: soft Skin General: no rashes or lesions noted Neuro General: patient alert, patient awake and patient oriented x3 Cognition: normal cognition Extrem General: normal to inspection Psych Appearance: grossly normal Mental Status: mental status grossly normal Judgment: judgment good Objective Labs Labs: Laboratory Results - last 24 hr 06/09/22 08:06 SARS-CoV-2 (PCR) Negative Assessment & Plan Assessment & Plan narrative: Colon cancer screening with colonoscopy using MAC COVID-19 COVID-19 status: Negative Time Spent With Patient Time with patient: less than 30 minutes Critical Care time: I spent a total of [] minutes of critical care time on this patient's care today; this time is exclusive of procedural time.
--- NOTE | 2022-06-09 09:28 | PM.OP.COLON ---
Operative Date/Time/Diagnoses Date of procedure: 06/09/22 Time of procedure: 09:29 Pre-op diagnosis: colon cancer screening Post-op diagnosis: same Procedure & Clinicians Study performed: Colonoscopy with MAC Same procedure as scheduled: Yes Indications: Colon cancer screening Surgeon: Dulce Madden Procedure Notes Procedure in detail: Preop diagnosis: Colon cancer screening Postop diagnosis: Same Operative procedure: Colonoscopy with MAC Surgeon: Nitza Madden MD Findings: Normal colonoscopy. No polyps, no diverticulosis. Procedure: Patient placed in lateral position. Rectal exam performed showing normal tone no masses. Colonoscope inserted into the rectum and advanced to ileocecal valve with minimal difficulty. Insufflation and extraction of the scope and the above findings. Retroflex was included in the rectum. Impression: Normal colonoscopy. Plan: Repeat colonoscopy 10 years unless otherwise indicated by change in family history or clinical condition Specimen(s): none sent Complications: none Post-procedure Recommendations: Colonoscopy in 10 years Follow up: as needed Disposition: PACU
[2022-06-09 09:34] VITALS: BP 121/72; PULSE 68; RESP 17; TEMP 36.2; O2SAT 98
[2022-06-09 09:38] VITALS: BP 132/75; PULSE 67; RESP 17; O2SAT 98
[2022-06-09 09:44] VITALS: BP 130/76; PULSE 59; RESP 11; TEMP 36.6; O2SAT 99
[2022-06-09 10:02] VITALS: BP 134/76; PULSE 65; RESP 16; O2SAT 99
== END 2022-06-09 10:00 | disposition home or self-care (01) ==
PROVIDERS: PCP Nurse Practitioner; Referring Provider Surgery; Visit Provider Surgery
PROC: 0DJD8ZZ Inspection of Lower Intestinal Tract, Via Natural or Artificial Opening Endoscopic (ICD-10-PCS; CPT 45378; principal; 2022-06-09 09:15)
DX: Z12.11 Encounter for screening for malignant neoplasm of colon (principal); Z20.822 Contact with and (suspected) exposure to COVID-19
CPT/HCPCS: G0121; 87635; C9803; J2704

== ENCOUNTER → 2022-07-10 09:22 | Outpatient (CLI) | payer MEDICARE, OTHER, SELFPAY ==
[2022-07-10 11:20] LABS: Add Manual Diff / Slide Review NO; Basophils Absolute Auto 0 /uL (0-100); Basophils Percent Auto 0.5 % (0-2); Eosinophils Absolute Auto 100 /uL (0-450); Eosinophils Percent Auto 2.8 % (2-4); Hematocrit 35.5 % (36-46); Hemoglobin 12.8 g/dL (12.0-16.0); Lymphocytes Absolute Auto 1400 /uL (1100-4500); Lymphocytes Percent Auto 33.1 % (25-40); Mean Corpuscular Hemoglobin 34.3 PG (26-34); Mean Corpuscular Volume 95.2 fL (80-100); Monocytes Absolute Auto 500 /uL (0-900); Monocytes Percent Auto 12.4 % (3-14); Neutrophils Absolute Auto 2100 /uL (1500-7000); Neutrophils Percent Auto 51.2 % (50-75); Platelet Count 241 X10^3/uL (150-400); Red Blood Cell Count 3.72 X10^6/uL (4.0-5.2); White Blood Cell Count 4.2 X10^3/uL (4.5-11.0)
[2022-07-10 11:27] LABS: Creatinine Urine Random 50.8 mg/dL
[2022-07-10 11:33] LABS: Microalbumin Urine Random < 0.6 mg/dL (0-1.6)
[2022-07-10 11:42] LABS: Alanine Aminotransferase 14 IU/L (<35); Albumin 4.3 g/dL (3.5-5.0); Albumin Globulin Ratio 1.3 (1.0-2.8); Alkaline Phosphatase 53 U/L (38-126); Aspartate Aminotransferase 27 IU/L (14-36); BUN Creatinine Ratio 21.5 (6-22); Bilirubin Total 0.6 mg/dL (0.2-1.3); Blood Urea Nitrogen 20 mg/dL (7-17); Calcium 9.1 mg/dL (8.4-10.2); Carbon Dioxide 33 mmol/L (22-32); Chloride 96 mmol/L (98-107); Cholesterol 187 mg/dL (140-199); Estimated Glomerular Filt Rate > 60 mL/min (>60); Globulin 3.3 g/dL (1.7-4.1); Glucose 84 mg/dL (80-110); HDL Cholesterol 62 mg/dL (40-60); HEMOLYSIS < 15 (0-50); LDL Cholesterol Calculated 110 mg/dL (<100); Potassium 4.2 mmol/L (3.4-5.1); Sodium 136 mmol/L (137-145); Total Protein 7.6 g/dL (6.3-8.2); Triglycerides 73 mg/dL (35-150)
[2022-07-10 12:00] LABS: Free T3, Triiodothyronine Free 3.31 pg/mL (2.77-5.27); Free T4, Direct Thyroxine 1.12 ng/dL (0.78-2.19)
[2022-07-10 12:14] LABS: Thyroid Stimulating Hormone 1.52 uIU/mL (0.47-4.68)
[2022-07-10 12:29] LABS: Hep C Virus Ab w/Reflex Quant NEGATIVE s/c (NEGATIVE)
== END ==
PROVIDERS: PCP Nurse Practitioner; Referring Provider Nurse Practitioner; Visit Provider Nurse Practitioner
DX: E78.41 Elevated Lipoprotein(a) (principal); I10 Essential (primary) hypertension; Z79.899 Other long term (current) drug therapy; D64.9 Anemia, unspecified; R53.83 Other fatigue
CPT/HCPCS: 36415; 80053; 80061; 82043; 82570; 84439; 84443; 84481; 85025; 86803

== ENCOUNTER 2023-04-03 10:45 | Emergency (ER) | payer MEDICARE, OTHER, SELFPAY ==
[2023-04-03] VITALS (8 sets, daily range): BP systolic 129–182; BP diastolic 59–81; PULSE 61–80; RESP 12–20; TEMP 36.3; O2SAT 98–100; BMI 23.3
--- NOTE | 2023-04-03 10:49 | DI.RAD.S_ITS ---
PROCEDURE: XR CHEST 1V INDICATIONS: chest pain TECHNIQUE: One view of the chest was acquired. COMPARISON: [facility], CR, XR CHEST 2V, 01/16/2020, 8:27. FINDINGS: Surgical changes and devices: None. Lungs and pleura: Lungs are clear. No pleural effusions or pneumothorax. Mediastinum: Mediastinal contours appear normal. Heart size is normal. Bones and chest wall: No suspicious bony lesions. Overlying soft tissues appear unremarkable. IMPRESSION: No acute cardiopulmonary findings Approved by: Mahin Bateman M.D. on 04/03/2023 at 11:12
--- NOTE | 2023-04-03 11:13 | ED_ITS ---
HPI - Chest Pain General Chief Complaint: Chest Pain Stated Complaint: CHEST PAIN Time Seen by Provider: 04/03/23 10:55 Source: patient Mode of arrival: Family Vehicle Limitations: no limitations History of Present Illness HPI narrative: Patient is a 68-year-old female with history of hypertension presenting today with chest pain. She reports that this is the 4th or 5th time that she is had chest pain in her whole life. She actually had chest pain when she was in [place] last month. She today had chest pain when she was in her bedroom lying out close to get dressed she reports a left-sided squeezing in her chest that lasted for about 5-10 minutes. It did not radiate she denies any diaphoresis or nausea. No shortness of breath. Related Data Home Medications Medication Instructions Recorded Confirmed coenzyme Q10-red yeast rice 25 1 cap PO DAILY 05/22/20 03/03/23 mg-600 mg capsule nystatin 100,000 unit/gram topical 1 applic topical DAILY 08/03/22 03/03/23 ointment Previous Rx's Medication Instructions Recorded artichoke extract 1 cap PO BID #60 caplets 05/22/20 conjugated estrogens 0.625 mg/gram See Rx Instructions .Route 08/12/22 vaginal cream (Premarin) .COMPLEX #30 grams hydrochlorothiazide 12.5 mg tablet 12.5 mg PO DAILY #90 tabs 08/12/22 Allergies Allergy/AdvReac Type Severity Reaction Status Date / Time sulfamethoxazole Allergy Intermediate Bad rash, Verified 04/03/23 10:53 [From SEPTRA] moderate to severe trimethoprim [From FEBRA] Allergy Intermediate Bad rash, Verified 04/03/23 10:53 moderate to severe adhesive tape Allergy Itching, Verified 04/03/23 10:53 redness. Patient History Medical History (Updated 04/03/23 @ 14:23 by Monisha Maguire DO) Osteopenia determined by x-ray Hyperlipidemia Exercise-induced angina Arthralgia of hip (02/04/15) Vaginal atrophy (02/04/15) Family History Father Cancer Heart disease Mother Heart disease Osteoporosis Sister Osteoporosis Social History household members: spouse Smoking Status: Never smoker alcohol intake: former Smoking Status: Never smoker alcohol intake frequency: 0-2 drinks per day Substance Use Type: does not use Exam Initial Vital Signs Initial Vital Signs: Vital Signs Temperature 97.3 F L 04/03/23 10:49 Pulse Rate 69 04/03/23 10:49 Respiratory Rate 12 04/03/23 10:49 Blood Pressure 179/77 H 04/03/23 10:49 Pulse Oximetry 99 04/03/23 10:49 Oxygen Delivery Method Room Air 04/03/23 10:49 GENERAL: Alert very pleasant 68-year-old female HEENT: Head atraumatic,EOMI, pupils reactive, face symmetric, moist mucous membranes CARDIOVASCULAR: Regular rate and rhythm without murmurs, rubs or gallops. RESPIRATORY: Breath sounds equal bilaterally, no wheezes rales or rhonchi. ABDOMEN: Soft, nontender. Normoactive bowel sounds all 4 quadrants. No guarding or rebound. EXTREMITIES: Normal range of motion, no clubbing or edema. Neurovascularly intact NEUROLOGICAL: Alert and oriented x4.Normal gait and speech. SKIN: Warm, dry, no laceration, no petechiae, no rashes or lesions. Scores HEART Score Heart Score history: Slightly Suspicious Heart Score EKG: Normal Heart Score Age: > or = 65 years old Heart Score risk factors: 1-2 risk factors Heart Score troponin: < or = to normal limit Heart Score Total: 3 Course Orders Ordered: ED Orders 04/03/23 10:49 XR chest 1V Stat EKG-12 Lead Stat 04/03/23 11:04 Complete Blood Count AUTO DIFF Stat Comprehensive Metabolic Panel Stat D Dimer Stat Lipase Stat Magnesium Stat PTT Partial Thromboplastin Nato Stat Prothrombin Time INR Stat Troponin & CK Cardiac Panel Stat 04/03/23 13:26 Trop I [Troponin I] Stat Discontinued Medications Aspirin (Aspirin 81 Mg Chew Tab) 324 mg PO NOW ONE Stop: 04/03/23 10:50 Last Admin: 04/03/23 11:38 Dose: 324 mg Documented By: SCOTT Vital Signs Vital signs: Vital Signs - 8 hr 04/03/23 10:49 04/03/23 11:30 04/03/23 11:41 Temperature 97.3 F L Pulse Rate 69 73 80 Respiratory Rate 12 16 18 Blood Pressure 179/77 H 182/81 H Pulse Oximetry 99 98 100 Oxygen Delivery Method Room Air Room Air 04/03/23 12:00 04/03/23 12:00 04/03/23 12:49 Temperature Pulse Rate 63 61 Respiratory Rate Blood Pressure 134/68 Pulse Oximetry 98 100 Oxygen Delivery Method 04/03/23 13:00 04/03/23 13:00 04/03/23 13:30 Temperature Pulse Rate 62 61 Respiratory Rate 15 20 Blood Pressure 136/65 Pulse Oximetry 99 99 Oxygen Delivery Method Room Air 04/03/23 13:30 Temperature Pulse Rate Respiratory Rate Blood Pressure 129/59 L Pulse Oximetry Oxygen Delivery Method MDM - Chest Pain Lab Data 04/03/23 11:04 04/03/23 11:04 Labs: Lab Results 04/03/23 Range/Units 11:04 WBC 5.1 (4.5-11.0) X10^3/uL RBC 4.44 (4.0-5.2) X10^6/uL Hgb 13.6 (12.0-16.0) g/dL Hct 40.5 (36-46) % MCV 91.2 (80-100) fL MCH 30.7 (26-34) PG MCHC 33.7 (30-36) % RDW 13.2 (11.6-14.8) % Plt Count 261 (150-400) X10^3/uL Neut % (Auto) 46.2 L (50-75) % Lymph % (Auto) 35.6 (25-40) % [place] % (Auto) 15.0 H (3-14) % Eos % (Auto) 1.9 L (2-4) % Baso % (Auto) 1.3 (0-2) % Neut # (Auto) 2400 (1793-7570) /uL Lymph # (Auto) 1800 (5397-4996) /uL [place] # (Auto) 800 (0-900) /uL Eos # (Auto) 100 (0-450) /uL Baso # (Auto) 100 (0-100) /uL PT 11.8 (10.1-12.7) SECONDS INR 1.0 (0.9-1.3) APTT 34 (26-36) SECONDS D-Dimer 317 (<500) ng/ml Sodium 136 L (137-145) mmol/L Potassium 4.6 (3.4-5.1) mmol/L Chloride 102 (98-107) mmol/L Carbon Dioxide 25 (22-32) mmol/L BUN 22 H (7-17) mg/dL Creatinine 0.88 (0.52-1.04) mg/dL Estimated GFR > 60 (>60) mL/min BUN/Creatinine Ratio 25.0 H (6-22) Glucose 123 H (80-110) mg/dL Calcium 9.6 (8.4-10.2) mg/dL Magnesium 2.2 (1.6-2.3) mg/dL Total Bilirubin 0.7 (0.2-1.3) mg/dL AST 39 H (14-36) IU/L ALT 20 (<35) IU/L Alkaline Phosphatase 45 (38-126) U/L Total Creatine Kinase 84 (30-135) U/L Troponin I < 0.012 (0.01-0.034) ng/mL Total Protein 8.1 (6.3-8.2) g/dL Albumin 4.6 (3.5-5.0) g/dL Globulin 3.5 (1.7-4.1) g/dL Albumin/Globulin Ratio 1.3 (1.0-2.8) Lipase 53 (23-300) U/L Imaging Data Chest x-ray: Radiologist's Impression: PROCEDURE: XR CHEST 1V INDICATIONS: chest pain TECHNIQUE: One view of the chest was acquired. COMPARISON: [facility], , XR CHEST 2V, 01/16/2020, 8:27. FINDINGS: Surgical changes and devices: None. Lungs and pleura: Lungs are clear. No pleural effusions or pneumothorax. Mediastinum: Mediastinal contours appear normal. Heart size is normal. Bones and chest wall: No suspicious bony lesions. Overlying soft tissues appear unremarkable. IMPRESSION: No acute cardiopulmonary findings Approved by: Mahin Bateman M.D. on 04/03/2023 at 11:12 ECG Data Interpretation: Normal sinus rhythm rate 84 VT interval 192 QRS [address] changes no T- wave inversions MDM Narrative Medical decision making narrative: Patient 68-year-old female presents today with chest pain. She reports having chest pain lasting for 5-10 minutes in his squeezing nature. This has happened to her last month as well. She is been seen by a primary who has ordered a stress test but it has not yet happened. Labs have been reviewed she is 2- troponins electrolytes and WBC unremarkable. Chest x-ray is negative. He has a heart score of 3 she is no EKG changes. D- dimer negative. Patient would benefit from an outpatient stress test is already in the works. No indication for admission. She is been chest pain-free in the ED. She did receive aspirin. Unlikely to be a pulmonary embolism years score is negative D-dimer is negative no need for further evaluation or CT scan. At this time discussed with patient that she may return to the ED chest pain worsens however I encourage her to continue with outpatient stress test YEARS Algorithm for Pulmonary Embolism (PE) from [employer] on 04/03/2023 All calculations should be rechecked by clinician prior to use RESULT SUMMARY: PE excluded YEARS algorithm rules out PE (0.43% with symptomatic VTE during 3-month follow- up) INPUTS: patient ?> 0 = No Clinical signs of DVT ?> 0 = No Hemoptysis ?> 0 = No PE most likely diagnosis ?> 0 = No D-dimer >=,000 ng/mL ?> 0 = No Discharge Plan Departure Patient Disposition: Home Clinical Impression: Atypical chest pain Instructions: DI for Atypical Chest Pain Activity Restrictions/Additional Instructions: *You have been diagnosed with atypical chest pain *What to do: At this time you do need a stress test however you workup in the emergency department is unremarkable. Please continue to follow-up with PCP. *Continue to take medications as directed Aspirin 81 mg daily *Follow up with your primary care provider in 2-3 days or call [phone] *Return to ER if you should have increasing chest pain shortness of or any new, worsening or concerning symptoms Prescriptions: No Action Premarin 0.625 mg/gram cream See Rx Instructions .ROUTE .COMPLEX Qty: 30 11RF Dose Instruction: Insert 1 gram vaginally twice a week as directed for vaginal atrophy Rx Instructions: Insert 1 gram vaginally twice a week as directed for vaginal atrophy. hydrochlorothiazide 12.5 mg tablet 12.5 mg PO DAILY Qty: 90 3RF Rx Instructions: Take one tablet by mouth daily. nystatin 100,000 unit/gram ointment 1 applic topical DAILY co Q10-red yeast rice 25-600 mg capsule 1 cap PO DAILY artichoke extract capsule 1 cap PO BID Qty: 60 0RF Referrals: Lois Gaytan ARNP [Primary Care Provider] - Stand Alone Forms: Patient Portal/API
[2023-04-03 11:23] LABS: Prothrombin Time 11.8 SECONDS (10.1-12.7)
[2023-04-03 11:26] LABS: PTT Partial Thromboplastin Tim 34 SECONDS (26-36)
[2023-04-03 11:27] LABS: Alanine Aminotransferase 20 IU/L (<35); Albumin 4.6 g/dL (3.5-5.0); Albumin Globulin Ratio 1.3 (1.0-2.8); Alkaline Phosphatase 45 U/L (38-126); Aspartate Aminotransferase 39 IU/L (14-36); Bilirubin Total 0.7 mg/dL (0.2-1.3); Blood Urea Nitrogen 22 mg/dL (7-17); Calcium 9.6 mg/dL (8.4-10.2); Carbon Dioxide 25 mmol/L (22-32); Chloride 102 mmol/L (98-107); Creatine Kinase 84 U/L (30-135); Estimated Glomerular Filt Rate > 60 mL/min (>60); Globulin 3.5 g/dL (1.7-4.1); Glucose 123 mg/dL (80-110); HEMOLYSIS 47 (0-50); Lipase 53 U/L (23-300); Magnesium 2.2 mg/dL (1.6-2.3); Potassium 4.6 mmol/L (3.4-5.1); Sodium 136 mmol/L (137-145); Total Protein 8.1 g/dL (6.3-8.2)
[2023-04-03 11:37] LABS: Troponin I < 0.012 ng/mL (0.01-0.034)
[2023-04-03] MEDS: ASPIRIN 81 MG CHEW TAB 324 MG PO (11:38)
[2023-04-03 11:51] LABS: Add Manual Diff / Slide Review NO; Basophils Absolute Auto 100 /uL (0-100); Basophils Percent Auto 1.3 % (0-2); Eosinophils Absolute Auto 100 /uL (0-450); Eosinophils Percent Auto 1.9 % (2-4); Hematocrit 40.5 % (36-46); Hemoglobin 13.6 g/dL (12.0-16.0); Lymphocytes Absolute Auto 1800 /uL (1100-4500); Lymphocytes Percent Auto 35.6 % (25-40); Mean Corpuscular HGB Conc 33.7 % (30-36); Mean Corpuscular Hemoglobin 30.7 PG (26-34); Mean Corpuscular Volume 91.2 fL (80-100); Monocytes Absolute Auto 800 /uL (0-900); Neutrophils Absolute Auto 2400 /uL (1500-7000); Neutrophils Percent Auto 46.2 % (50-75); Platelet Count 261 X10^3/uL (150-400); Red Blood Cell Count 4.44 X10^6/uL (4.0-5.2); Red Cell Distribution Width 13.2 % (11.6-14.8); White Blood Cell Count 5.1 X10^3/uL (4.5-11.0)
[2023-04-03 12:21] LABS: D Dimer 317 ng/ml (<500)
[2023-04-03 14:03] LABS: Troponin I < 0.012 ng/mL (0.01-0.034)
== END 2023-04-03 14:47 | disposition home or self-care (01) ==
PROVIDERS: Emergency Provider Emergency Medicine; PCP Nurse Practitioner
DX: R07.89 Other chest pain (principal)
CPT/HCPCS: 36415; 71045; 80053; 82550; 83690; 83735; 84484; 85025; 85379; 85610; 85730; 93005; 93010; 99284

== ENCOUNTER → 2023-04-13 09:23 | Outpatient (CLI) | payer MEDICARE, OTHER, SELFPAY ==
[2023-04-13 10:51] LABS: Add Manual Diff / Slide Review NO; Basophils Absolute Auto 0 /uL (0-100); Basophils Percent Auto 0.5 % (0-2); Eosinophils Absolute Auto 100 /uL (0-450); Eosinophils Percent Auto 2.4 % (2-4); Hemoglobin 12.9 g/dL (12.0-16.0); Lymphocytes Absolute Auto 1700 /uL (1100-4500); Lymphocytes Percent Auto 37.6 % (25-40); Mean Corpuscular HGB Conc 34.9 % (30-36); Mean Corpuscular Hemoglobin 33.5 PG (26-34); Mean Corpuscular Volume 95.8 fL (80-100); Monocytes Absolute Auto 600 /uL (0-900); Monocytes Percent Auto 13.5 % (3-14); Neutrophils Absolute Auto 2000 /uL (1500-7000); Platelet Count 253 X10^3/uL (150-400); Red Blood Cell Count 3.86 X10^6/uL (4.0-5.2); White Blood Cell Count 4.4 X10^3/uL (4.5-11.0)
[2023-04-13 11:04] LABS: Alanine Aminotransferase 18 IU/L (<35); Albumin 4.3 g/dL (3.5-5.0); Albumin Globulin Ratio 1.5 (1.0-2.8); Alkaline Phosphatase 51 U/L (38-126); Aspartate Aminotransferase 33 IU/L (14-36); BUN Creatinine Ratio 21.7 (6-22); Bilirubin Total 0.5 mg/dL (0.2-1.3); Blood Urea Nitrogen 20 mg/dL (7-17); Calcium 9.9 mg/dL (8.4-10.2); Carbon Dioxide 32 mmol/L (22-32); Chloride 101 mmol/L (98-107); Cholesterol 192 mg/dL (140-199); Estimated Glomerular Filt Rate > 60 mL/min (>60); Globulin 2.9 g/dL (1.7-4.1); Glucose 89 mg/dL (80-110); HDL Cholesterol 71 mg/dL (40-60); HEMOLYSIS < 15 (0-50); LDL Cholesterol Calculated 106 mg/dL (<100); Magnesium 2.2 mg/dL (1.6-2.3); Potassium 4.3 mmol/L (3.4-5.1); Sodium 139 mmol/L (137-145); Total Protein 7.2 g/dL (6.3-8.2); Triglycerides 77 mg/dL (35-150)
[2023-04-13 11:20] LABS: Vitamin D 25 Hydroxy (D3) 41.2 ng/mL (30.0-100.0)
== END ==
PROVIDERS: PCP Nurse Practitioner; Referring Provider Family Medicine; Visit Provider Family Medicine
DX: M85.80 Other specified disorders of bone density and structure, unspecified site (principal); E87.6 Hypokalemia; E78.41 Elevated Lipoprotein(a); I10 Essential (primary) hypertension; D64.9 Anemia, unspecified; I20.89 Other forms of angina pectoris
CPT/HCPCS: 36415; 80053; 80061; 82306; 83735; 85025

== ENCOUNTER → 2023-05-03 08:59 | Outpatient (CLI) | payer MEDICARE, OTHER, SELFPAY ==
--- NOTE | 2023-05-03 09:01 | DI.NM.S_ITS ---
PROCEDURE: NM OZZY PERF SPECT REST & STR Rest and exercise myocardial perfusion SPECT with gated imaging and ejection fraction RADIOPHARMACEUTICAL: 11.4 mCi Tc-99m sestamibi IV at rest and 26.2 mCi Tc-99m sestamibi IV at peak exercise. A one day-protocol was performed. INDICATIONS: intermittent chest px TECHNIQUE: Radiopharmaceutical was injected at peak stress test, and also at rest. SPECT images were obtained. SPECT myocardial perfusion images were displayed in short axis, horizontal long axis, and vertical long axis views. Gated images were reviewed using [employer] software. COMPARISON: None. CARDIAC STRESS: A standard Gerardo treadmill exercise tolerance test was performed by the patient under the supervision of an attending staff. The patient exercised for 9 minutes and 0 seconds; functional aerobic impairment (BARBARA) is -43%. Hemodynamic data: There is normal blood pressure and heart rate response to exercise stress. Patient achieved 107% of maximum predicted heart rate at peak exercise. Symptoms: Patient denied chest pain during exercise. EKG: No diagnostic EKG changes of ischemia; no ectopy. FINDINGS: Raw data: There is good myocardial labeling by radiotracer. No significant motion artifacts. Left ventricle function: Gated images demonstrate normal left ventricle wall thickening. No segmental wall motion abnormality. No transient ischemic dilation; TID is 1.24 (normal less than 1.3). The left ventricle resting end-diastolic volume is 61 mL. Left ventricle stress ejection fraction is 80%; normal values are above 45%. Myocardial perfusion: There is normal distribution of activity in the left and right ventricular myocardium. No fixed or reversible perfusion defects. IMPRESSION: Low risk, normal treadmill nuclear stress test 1) No perfusion evidence of ischemia or infarction. 2) Normal left ventricular size, wall motion, and systolic function (EF post stress 80%). 3) No diagnostic ST changes during exercise or recovery. 4) No angina during the study. 5) Very exercise tolerance (10.1METs, BARBARA -43%). Target heart rate achieved. Appropriate BP response to exercise. 6) Compared to the nuclear stress test done 02/08/2020, no significant change in perfusion images. Dictated by: Liudmila Leon MD on 05/03/2023 at 16:23 Approved by: Liudmila Leon MD on 05/03/2023 at 16:27
== END ==
PROVIDERS: PCP Nurse Practitioner; Referring Provider Family Medicine; Visit Provider Family Medicine
DX: I20.89 Other forms of angina pectoris (principal); I10 Essential (primary) hypertension
CPT/HCPCS: 78452; 93017; A9502

== ENCOUNTER → 2023-06-02 15:06 | Outpatient (CLI) | payer MEDICARE, OTHER, SELFPAY ==
--- NOTE | 2023-06-02 15:07 | DI.MG.S_ITS ---
BILATERAL DIGITAL SCREENING MAMMOGRAM 3D/2D WITH CAD: 06/02/2023 CLINICAL: Routine screening. Family history of breast cancer. Comparison is made to exams dated: 06/01/2022 mammogram, 02/26/2021 mammogram, and 01/05/2020 mammogram - [facility]. Both breasts are heterogeneously dense, which may obscure small masses (category c / 51-75% glandular tissue). Current study was also evaluated with a Computer Aided Detection (CAD) system. No significant masses, calcifications, or other findings are seen in either breast. There has been no significant interval change. IMPRESSION: NEGATIVE There is no mammographic evidence of malignancy. A 1 year screening mammogram is recommended. Based on the Tyrer Cuzick model (a risk assessment model) the patient's lifetime risk is 9.1% and her 10 year risk is 4.6%. According to the ACR, ACS, and NCCN guidelines, an annual breast MRI exam along with mammogram is recommended if the patient's lifetime risk is 20% or greater. This exam was interpreted at Station ID: [id number]. NOTE: For mammograms, a report in lay terms will be sent to the patient. Approximately 15% of breast malignancies will not be visualized mammographically. In the management of a palpable breast mass, a negative mammogram must not discourage biopsy of a clinically suspicious lesion. Electronically Signed By: Hoang reed/beth:06/03/2023 08:03:07 letter sent: Normal Exam ACR BI-RADS Category 1: Negative [id number]
== END ==
PROVIDERS: PCP Nurse Practitioner; Referring Provider Nurse Practitioner; Visit Provider Nurse Practitioner
DX: Z12.31 Encounter for screening mammogram for malignant neoplasm of breast (principal); Z80.3 Family history of malignant neoplasm of breast
CPT/HCPCS: 77063; 77067

== ENCOUNTER → 2024-05-19 07:42 | Outpatient (CLI) | payer MEDICARE, OTHER, SELFPAY ==
[2024-05-19 08:11] LABS: Add Manual Diff / Slide Review NO; Basophils Absolute Auto 0 /uL (0-100); Basophils Percent Auto 0.5 % (0-2); Eosinophils Absolute Auto 200 /uL (0-450); Eosinophils Percent Auto 3.8 % (2-4); Hematocrit 36.6 % (36-46); Hemoglobin 12.5 g/dL (12.0-16.0); Lymphocytes Absolute Auto 1600 /uL (1100-4500); Lymphocytes Percent Auto 33.6 % (25-40); Mean Corpuscular HGB Conc 34.2 % (30-36); Mean Corpuscular Hemoglobin 32.4 PG (26-34); Mean Corpuscular Volume 94.9 fL (80-100); Monocytes Absolute Auto 600 /uL (0-900); Monocytes Percent Auto 12.3 % (3-14); Neutrophils Absolute Auto 2400 /uL (1500-7000); Neutrophils Percent Auto 49.8 % (50-75); Platelet Count 254 X10^3/uL (150-400); Red Blood Cell Count 3.85 X10^6/uL (4.0-5.2); Red Cell Distribution Width 13.3 % (11.6-14.8); White Blood Cell Count 4.8 X10^3/uL (4.5-11.0)
[2024-05-19 08:44] LABS: Alanine Aminotransferase 18 IU/L (<35); Albumin 4.2 g/dL (3.5-5.0); Albumin Globulin Ratio 1.6 (1.0-2.8); Alkaline Phosphatase 56 U/L (38-126); Aspartate Aminotransferase 32 IU/L (14-36); Bilirubin Total 0.7 mg/dL (0.2-1.3); Blood Urea Nitrogen 24 mg/dL (7-17); Calcium 9.4 mg/dL (8.4-10.2); Carbon Dioxide 34 mmol/L (22-32); Chloride 101 mmol/L (98-107); Cholesterol 189 mg/dL (140-199); Estimated Glomerular Filt Rate > 60 mL/min (>60); Globulin 2.7 g/dL (1.7-4.1); Glucose 83 mg/dL (80-110); HDL Cholesterol 75 mg/dL (40-60); HEMOLYSIS < 15 (0-50); LDL Cholesterol Calculated 101 mg/dL (<100); Potassium 3.5 mmol/L (3.4-5.1); Sodium 138 mmol/L (137-145); Total Protein 6.9 g/dL (6.3-8.2); Triglycerides 63 mg/dL (35-150)
[2024-05-19 09:12] LABS: TSH w/ Reflex to FT4 2.04 uIU/mL (0.47-4.68)
== END ==
PROVIDERS: PCP Nurse Practitioner Family; Referring Provider Nurse Practitioner; Visit Provider Nurse Practitioner
DX: E87.6 Hypokalemia (principal); E78.41 Elevated Lipoprotein(a); I10 Essential (primary) hypertension; M85.80 Other specified disorders of bone density and structure, unspecified site
CPT/HCPCS: 36415; 80053; 80061; 84443; 85025

== ENCOUNTER → 2024-06-06 | Outpatient (CLI) | payer MEDICARE, OTHER, SELFPAY ==
--- NOTE | 2024-06-06 14:08 | DI.RAD.S_ITS ---
PROCEDURE: XR HIP W PEL IF DONE LT 2V INDICATIONS: lateral hip pain TECHNIQUE: AP pelvis with lateral view(s) of the left Dom go 2 hip(s). COMPARISON: None. FINDINGS: Bones: No fractures or dislocations. Pelvic ring appears intact. No suspicious bony lesions. Minimal bilateral axial hip joint space narrowing. Soft tissues: The visualized bowel gas pattern is normal. No suspicious soft tissue calcifications. IMPRESSION: Minimal hip joint degeneration; otherwise no definite radiographic abnormality. If pain persists with conservative management, consider repeat plain films or cross sectional imaging such as CT or MRI for further assessment. Dictated by: dEwin HINDS Interpreted: Nathaniel Terrazas MD on 06/06/2024 at 14:53 Transcribed by: SHAHRIAR on 06/06/2024 at 14:54 Approved by: Gricel Ma M.D. on 06/29/2024 at 21:32
== END ==
LOC: RAD 14:07
PROVIDERS: PCP Nurse Practitioner Family; Referring Provider Nurse Practitioner Family; Visit Provider Nurse Practitioner Family
DX: M25.552 Pain in left hip (principal)
CPT/HCPCS: 73502

== ENCOUNTER → 2024-07-12 15:37 | Outpatient (CLI) | payer MEDICARE, OTHER, SELFPAY ==
--- NOTE | 2024-07-12 15:38 | DI.MG.S_ITS ---
BILATERAL DIGITAL SCREENING MAMMOGRAM 3D/2D WITH CAD: 07/12/2024 CLINICAL: Routine screening. Family history of breast cancer. Comparison is made to exams dated: 06/01/2022 mammogram, 02/26/2021 mammogram, and 01/05/2020 mammogram - [facility]. The breasts are heterogeneously dense, which may obscure small masses (category c / 51-75% glandular tissue). Current study was also evaluated with a Computer Aided Detection (CAD) system. No significant masses, calcifications, or other findings are seen in either breast. There has been no significant interval change. IMPRESSION: NEGATIVE There is no mammographic evidence of malignancy. A 1 year screening mammogram is recommended. Based on the Tyrer Cuzick model (a risk assessment model) the patient's lifetime risk is 8.6% and her 10 year risk is 4.5%. According to the ACR, ACS, and NCCN guidelines, an annual breast MRI exam along with mammogram is recommended if the patient's lifetime risk is 20% or greater. This exam was interpreted at Station ID: [id number]. NOTE: For mammograms, a report in lay terms will be sent to the patient. Approximately 15% of breast malignancies will not be visualized mammographically. In the management of a palpable breast mass, a negative mammogram must not discourage biopsy of a clinically suspicious lesion. Electronically Signed By: Vadim [email or web address]:07/13/2024 12:22:37 letter sent: Normal Exam ACR BI-RADS Category 1: Negative
== END ==
PROVIDERS: PCP Nurse Practitioner Family; Referring Provider Nurse Practitioner Family; Visit Provider Nurse Practitioner Family
DX: Z12.31 Encounter for screening mammogram for malignant neoplasm of breast (principal); Z80.3 Family history of malignant neoplasm of breast; R92.333 Mammographic heterogeneous density, bilateral breasts
CPT/HCPCS: 77063; 77067

== ENCOUNTER → 2024-08-09 14:10 | Outpatient (CLI) | payer MEDICARE, OTHER, SELFPAY ==
--- NOTE | 2024-08-09 14:12 | DI.RAD.S_ITS ---
PROCEDURE: XR SHOULDER LT MIN 2V INDICATIONS: Decreased ROM TECHNIQUE: 3 views of the shoulder were acquired. COMPARISON: None. FINDINGS AND IMPRESSION: Mild acromioclavicular and glenohumeral degenerative changes. Small calcification projects under distal clavicle. Mild calcific tendinopathy also seen. No displaced fracture or dislocation. If there is high concern for further derangement, consider MRI evaluation. Dictated by: Hoang Dhillon M.D. on 08/09/2024 at 16:54 Approved by: Hoang Dhillon M.D. on 08/09/2024 at 16:55
== END ==
PROVIDERS: PCP Nurse Practitioner Family; Referring Provider Nurse Practitioner Family; Visit Provider Nurse Practitioner Family
DX: M25.512 Pain in left shoulder (principal)
CPT/HCPCS: 73030